=== PATIENT | female | born 1995 | race Caucasian/White ===

== ENCOUNTER 2024-01-14 20:02 | Emergency (ER) | payer BC ==
[~2024-01-14] VITALS: Ht 177.8 cm; Wt 99.1 kg
[~2024-01-14 20:02] MED LIST: TAMIFLU 75MG75 MG PO; ZOFRAN ODT8 MG PO
[2024-01-14 20:09] VITALS: TEMP 97.9
[2024-01-14] MEDS ORDERED: Ketorolac 60 MG/2 ML VIAL IM ONE (21:45)
[2024-01-14] MEDS ORDERED: FLEXERIL 1010 MG/TAB PO (22:52)
[2024-01-14 23:17] VITALS: BP 102/62; PULSE 84
== END 2024-01-14 23:17 | disposition home or self-care (01) ==
LOC: COL.ER 20:02
DX: S30.0XXA Contusion of lower back and pelvis, initial encounter (principal); W10.8XXA Fall (on) (from) other stairs and steps, initial encounter
CPT/HCPCS: J1885; J2360